=== PATIENT | female | born 1960 | race Hispanic/Latino ===

== ENCOUNTER 2017-04-11 10:02 | Outpatient (CLI) | payer OTHER ==
--- NOTE | 2017-04-11 12:12 | RAD ---
LUMBAR SPINE FLEXION AND EXTENSION THREE VIEWS: History: Low back pain. M48.06 lumbar spine stenosis. Comparison: None. FINDINGS: In the neutral position there is anterolisthesis of L4 over L5 approximately 5 mm. Mild degenerative narrowing at the L4-5 disc space. Sacrum is intact. With flexion the anterolisthesis of L4 over L5 increases to approximately 8 mm. With extension, the a nterolisthesis of L4 over L5 decreases to just under 4 mm. Extensive facet arthrosis at L3-4. IMPRESSION: Grade I anterolisthesis at L4-5 with translation with flexion and extension. POS: SHAHIDA
== END 2017-04-11 10:03 | disposition home or self-care (01) ==
LOC: TBSIIMAG 10:02
PROVIDERS: ATTEND Neurological Surgery
DX: M48.061 Spinal stenosis, lumbar region without neurogenic claudication (principal); M43.16 Spondylolisthesis, lumbar region
CPT/HCPCS: 72100

== ENCOUNTER 2017-04-29 14:24 | Outpatient (CLI) | payer OTHER ==
--- NOTE | 2017-04-29 20:08 | EKG ---
Test Reason : Blood Pressure : / mmHG Vent. Rate : 067 BPM Atrial Rate : 067 BPM P-R Int : 178 ms QRS Dur : 084 ms QT Int : 382 ms P-R-T Axes : 052 029 034 degrees QTc Int : 403 ms Normal sinus rhythm Normal ECG When compared with ECG of 19-APR-2016 12:06, No significant change was found Confirmed by DAVE MAHAN, SShanika ([id number]) on 04/29/2017 8:08:24 PM Referred By: DAMON Confirmed By:DR. Nelida ACOSTA MD
== END 2017-04-29 14:25 | disposition home or self-care (01) ==
LOC: LABBT 14:24
PROVIDERS: ATTEND Neurological Surgery
DX: Z01.818 Encounter for other preprocedural examination (principal); M43.16 Spondylolisthesis, lumbar region; M48.061 Spinal stenosis, lumbar region without neurogenic claudication
CPT/HCPCS: 93005; 93010

== ENCOUNTER 2017-05-06 09:40 | Day surgery (SDC) | payer OTHER ==
[2017-04-29 14:53] VITALS: BMI 33.7
--- NOTE | 2017-05-06 00:48 | HP ---
HISTORY OF PRESENT ILLNESS: Ms. De Guzman is a pleasant 56-year-old woman who presents for evaluation of low back pain and neurogenic claudication. She has previously seen Dr. Reynoso for the same prob em in 2016 and has an MRI from [facility] of the lumbar spine from that time. This reveals an L 4-L5 grade 1 spondylolisthesis that is associated with severe central canal stenosis at the same leve l. This is most likely source of her symptoms. She has had a few injections with Dr. Armando oropeza back in 2016 and 2017, which she feels has never really made a great deal of difference. She pres ents today for discussion on what the best next step to take would be. Additionally, she discussed h er bilateral lower extremity numbness and neck pains that have not previously been evaluated. PAST MEDICAL HISTORY: Significant for hypertension, hyperlipidemia, and neuropathy. CURRENT MEDICATIONS: Aspirin, simvastatin, gabapentin, and lisinopril. ALLERGIES: No known drug allergies. PAST SURGICAL HISTORY: Appendectomy, tonsillectomy, bladder sling, and oophorectomy. PHYSICAL EXAMINATION: The patient is alert and oriented x3. Gait is severely antalgic and slowed as well as stooped. She is still maintaining 5/5 strength bilaterally in all muscle groups of the lowe r extremities. ASSESSMENT: Lumbar spondylolisthesis with back pain and neurogenic claudication. PLAN: We did obtain flexion, extension views of the lumbar spine that appeared to be unstable at the level of the slip. Dr. Olivera met the patient, reviewed her imaging and advocated for an L4-L5 decom pression and fusion. He explained to the patient the risks, benefits, and alternatives to the proced ure. The patient expressed understanding and would like to move forward with surgery as discussed. I do believe the patient is mentally competent and capable of making medical decisions for herself an d move forward with surgery as planned. Tom Delgado PA-C dictating for Dr. Olivera.
[2017-05-06] MEDS ORDERED: Bupivacaine HCl 0.5%/Epinephrine 1:200,000/PF 30 ml Vial ONE (09:52)
[2017-05-06] MEDS ORDERED: Thrombin 5000 UNITS/5 ML VIAL ONE (09:52)
[2017-05-06] MEDS ORDERED: CEFAZOLIN/Water 2 GM/20 ML SYRINGE ONE ×2 (09:53→16:36)
[2017-05-06] MEDS ORDERED: Fentanyl 250 MCG/5 ML VIAL ONE (10:01)
[2017-05-06] MEDS ORDERED: Famotidine/PF 20 mg/2ml Vial ONE (11:13)
[2017-05-06] MEDS ORDERED: Midazolam HCl 2 mg/2 ml Vial ONE (11:13)
[2017-05-06] MEDS ORDERED: Promethazine HCl 25 MG/ML VIAL SLOW IVP PRN (12:33)
[2017-05-06] MEDS ORDERED: HYDROmorphone 2 MG/ML VIAL SLOW IVP PRN (12:33)
[2017-05-06] MEDS ORDERED: Meperidine HCl/PF 25 MG/ML VIAL SLOW IVP PRN (12:33)
[2017-05-06] MEDS ORDERED: Morphine Sulfate 2 MG/ML SYRINGE SLOW IVP PRN (12:33)
[2017-05-06] MEDS ORDERED: Ondansetron HCl/PF 4 MG/2 ML Vial IVP PRN (12:33)
[2017-05-06] MEDS ORDERED: Promethazine HCl 25 MG/ML VIAL IM PRN (12:33)
[2017-05-06] MEDS ORDERED: Metoclopramide HCl 10 MG/2 ML VIAL ONE ×2 (13:34→16:26)
[2017-05-06] MEDS ORDERED: HYDROmorphone 0.5 MG/0.5 ML SYRINGE ONE (14:12)
[2017-05-06] MEDS ORDERED: Ondansetron HCl/PF 4 MG/2 ML Vial ONE (16:26)
[2017-05-06] MEDS ORDERED: Glycopyrrolate 0.2 MG/ML 5 ML SYRINGE ONE (16:26)
[2017-05-06] MEDS ORDERED: ePHEDrine/0.9% NaCl/PF SYRINGE 50 mg/10 ml ONE (16:26)
[2017-05-06] MEDS ORDERED: Lidocaine 1% PF 5 ML VIAL ONE (16:26)
[2017-05-06] MEDS ORDERED: Propofol 200 MG/20 ML VIAL ONE (16:26)
[2017-05-06] MEDS ORDERED: PHENYLEPHRINE-NS 100 MCG/ML 10 ML SYRINGE ONE (16:26)
[2017-05-06] MEDS ORDERED: HYDROcodone/Acetaminophen 5/325 mg Tablet ONE (16:39)
--- NOTE | 2017-05-07 11:21 | OP ---
DATE OF PROCEDURE: 05/06/2017 SURGEON: Dr. Ricardo Olivera RECEIVER STOCKER: Dereje Delgado PA-C. INDICATION: Pain. DIAGNOSIS: Lumbar stenosis with lumbar spondylolisthesis. PROCEDURE: L4-L5 decompression, L4-5 posterior lateral instrumented fusion, placement of allograft, placement of autograft. ANESTHESIA: General. TECHNIQUE: The patient was brought into the operating room and placed under general anesthesia. She was flipped from a supine to a prone position on the operating room table. A linear incision was pl anned over the L4-L5 segment. After prepping and draping and after an appropriate operative pause, t he incision was created. Soft tissues were swept away from midline. Self-retaining retractors were placed in the wound for optimal exposure. After confirming the appropriate levels with C-arm fluoros copy a laminectomy as well as facetectomies were performed at L4-5 until the central canal and latera l recesses were decompressed. Pedicle screws were then placed in L4 and L5 bilaterally. An intraope rative 3D CT scan was performed to confirm placement. Rods were then placed across the screw heads a nd final tightened with set screws. Allograft and autograft material was then placed in the lateral confines of the instrumentation construct. The wound was irrigated. Hemostasis was maintained throu ghout. The wound was then closed in anatomic layers and a pressure dressing was applied. There were no known procedure complications.
== END 2017-05-06 18:12 | disposition home or self-care (01) ==
LOC: SDC 09:40
PROVIDERS: ATTEND Neurological Surgery
PROC: 0SG0071 Fusion of Lumbar Vertebral Joint with Autologous Tissue Substitute, Posterior Approach, Posterior Column, Open Approach (ICD-10-PCS; principal; 2017-05-06)
DX: M43.16 Spondylolisthesis, lumbar region (principal); M48.061 Spinal stenosis, lumbar region without neurogenic claudication; I10 Essential (primary) hypertension; E78.5 Hyperlipidemia, unspecified; G62.9 Polyneuropathy, unspecified; Z79.82 Long term (current) use of aspirin; Z79.899 Other long term (current) drug therapy
CPT/HCPCS: 76001; C1713; J0131; J0670; J1170; J2001; J2250; J2405; J2704; J2765; J3010; S0028

== ENCOUNTER 2017-06-13 09:47 | Outpatient (CLI) | payer OTHER ==
--- NOTE | 2017-06-13 11:37 | RAD ---
TWO TO 3 VIEW LUMBAR SPINE SERIES: INDICATION: Lumbar radiculopathy. FINDINGS: There is levocurvature of the lumbar spine. Postoperative fusion spans L4-5. No obvious hardware co mplication is visualized. Multilevel end plate degenerative change and disk space narrowing present. There is no significant malalignment. Prominent degree of impacted fecal material at the colon. IMPRESSION: 1. Postoperative lumbar spine without obvious acute abnormality. There is multilevel degenerative c hange. 2. Constipation. POS: SHAHIDA
--- NOTE | 2017-06-13 12:58 | MRI ---
MRI CERVICAL SPINE WITHOUT COTNRAST: HISTORY: Left-sided headache and pain of the right shoulder and arm. COMPARISON: None. TECHNIQUE: Cervical spine MRI is performed without intravenous Gadolinium administration. Multisequential, mult iplanar imaging is performed. FINDINGS: There is straightening of the normal cervical lordosis. Vertebral body height is maintained. No fra cture. No significant STIR hyperintensity to suggest edema or ligamentous injury. Visualized brain parenchyma, cervicomedullary junction, cervical cord, and the upper thoracic cord callejas ve a normal size and signal intensity. C2-C3: No significant disk-osteophyte complex. No significant central canal stenosis. Neural karl en are patent. C3-C4: Adequate disk hydration. No significant disk-osteophyte complex. No significant central amparo l stenosis. Mild right foraminal narrowing due to degenerative change of the uncovertebral joint. T he left neural foramen is patent. C4-C5: Adequate disk hydration. No significant disk-osteophyte complex. No significant central can al stenosis or foraminal narrowing. C5-C6: Adequate disk hydration. There is a generalized disk-osteophyte complex without significant central canal stenosis. Neural foramen are patent bilaterally. C6-C7: Adequate disk hydration. There is a central disk-osteophyte complex that abuts the thecal sa c. No significant central canal stenosis. Foramen are patent. C7-T1: Adequate disk hydration. No significant central canal stenosis or foraminal narrowing. In the left carotid space, there is a T2 hyperintense , T1 hypointense lesion with what appears to callejas ve linear hypointensity on the T1 and T2 weighted images, possibly representing flow voids. This les ion measures 1.8 x 2.4 cm and based upon the location may represent a carotid body tumor (paraganglio ma). Additional imaging is recommended. IMPRESSION: 1. Degenerative change of the cervical spine as above. No high-grade central canal stenosis or high -grade foraminal narrowing. 2. 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 Better interrogation with additional imaging is recommended. Results of the study were discussed with Dr. Jarod Sosa's PA 06/13/17 at 11:00 a.m. CODE CR POS: [facility]
== END 2017-06-13 09:48 | disposition home or self-care (01) ==
LOC: TBSIIMAG 09:47
PROVIDERS: ATTEND Neurological Surgery
DX: M47.26 Other spondylosis with radiculopathy, lumbar region (principal); K59.00 Constipation, unspecified; M47.892 Other spondylosis, cervical region; Z98.890 Other specified postprocedural states
CPT/HCPCS: 72100; 72141